=== PATIENT | female | born 1955 | race Caucasian/White ===

== ENCOUNTER → 2021-12-30 | Outpatient (CLI) | payer MEDICARE ==
--- NOTE | 2021-12-30 13:57 | XR ---
EXAMINATION TYPE: XR femur LT DATE OF EXAM: 12/30/2021 CLINICAL HISTORY: pain TECHNIQUE: Two views of the left femur are obtained. COMPARISON: None. FINDINGS: There is no acute fracture or dislocation seen of the femur. The hip and knee joints elba ear within normal limits. 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 The overlying soft tissue appears unremarkable. IMPRESSION: There is no acute fracture or dislocation seen of the femur. ICD 10 NO FRACTURE, INITIAL EVALUATION
== END | disposition home or self-care (01) ==
LOC: RADXRYALE 13:18
PROVIDERS: ATTEND Obstetrics & Gynecology
DX: M85.80 Other specified disorders of bone density and structure, unspecified site (principal)

== ENCOUNTER → 2022-05-05 | Outpatient (CLI) | payer MEDICARE ==
--- NOTE | 2022-05-05 16:31 | MR ---
EXAMINATION TYPE: MR knee LT wo con DATE OF EXAM: 05/05/2022 COMPARISON: Outside left knee x-ray March 31, 2022 HISTORY: Lt knee pain TECHNIQUE: Multiplanar, multisequence imaging of the left knee is performed without IV contrast. FINDINGS: MEDIAL MENISCUS: Slight medial extrusion medial meniscus with increased signal and fraying along the posterior horn extending to superior articular surface sagittal image 27. LATERAL MENISCUS: Anterior and posterior horns are intact without tear. CRUCIATE LIGAMENTS: The anterior and posterior cruciate ligaments are intact and unremarkable. COLLATERAL LIGAMENTS: The medial collateral ligament and lateral collateral ligament complex are inta ct. Fluid signal swells medial collateral ligament. EXTENSOR MECHANISM: Visualized quadriceps and patellar tendons are intact. EFFUSION: Small size suprapatellar joint effusion. POPLITEAL CYST: Small size popliteal/flores cyst sagittal image 23. TRICOMPARTMENT SPACES: Moderate to borderline severe narrowing inferior patellofemoral compartment. M oderate narrowing Medial and lateral tibiofemoral compartments. Mild tricompartment spurring. CARTILAGE: Chondromalacia patella with thinning of articular cartilage along the posterior patellar p ole, areas of full-thickness loss are seen. Cartilaginous loss medial tibiofemoral compartment with f ull-thickness defect sagittal image 23 centrally noted BONE MARROW SIGNAL: Mild increased T2 signal through the medial tibial plateau. OTHER: Cystic change posterior to the distal femur sagittal image 17 is noted. IMPRESSION: 1. Moderate to advanced tricompartment degenerative changes as detailed above. 2. Full-thickness tear posterior horn medial meniscus. 3. Mild MCL sprain injury. 4. Small suprapatellar joint effusion. 5. Small popliteal cyst.
== END | disposition home or self-care (01) ==
LOC: RADMRIMAIN 10:56
PROVIDERS: ATTEND Orthopaedic Surgery
DX: S83.242A Other tear of medial meniscus, current injury, left knee, initial encounter (principal); X58.XXXA Exposure to other specified factors, initial encounter

== ENCOUNTER → 2022-06-11 | Outpatient (CLI) | payer MEDICARE ==
[2022-06-11 18:35] LABS: Basophils # (A) 0.05 X 10*3/uL (0.00-0.10); Basophils % (A) 1.1 %; Eosinophils # (A) 0.09 X 10*3/uL (0.04-0.35); HCT 41.2 % (37.2-46.3); HGB 13.6 g/dL (12.0-15.0); Immature Grans, Automated 0.2 %; Lymphocytes # (A) 1.35 X 10*3/uL (0.90-5.00); Lymphocytes % (A) 30.6 %; MCH 30.4 pg (27.0-32.0); Monocytes # (A) 0.43 X 10*3/uL (0.20-1.00); Monocytes % (A) 9.8 %; NRBC Per 100 WBC 0 /100 WBCS (0.0-0.0); Neutrophils # (A) 2.48 X 10*3/uL (1.80-7.70); Neutrophils % (A) 56.3 %; Platelet Count 253 X 10*3/uL (140-440); RBC 4.48 X 10*6/uL (4.10-5.20); RDW 12.2 % (11.5-14.5); WBC 4.41 X 10*3/uL (4.50-10.00)
[2022-06-11 18:50] LABS: Carbon Dioxide 27.2 mmol/L (20.0-27.5); Potassium 4.2 mmol/L (3.5-5.5)
== END | disposition home or self-care (01) ==
LOC: LABPAT 12:12
PROVIDERS: ATTEND Orthopaedic Surgery
DX: Z01.812 Encounter for preprocedural laboratory examination (principal); M23.92 Unspecified internal derangement of left knee
CPT/HCPCS: 80051; 85025; 93005

== ENCOUNTER 2022-06-24 10:17 | Day surgery (SDC) | payer MEDICARE ==
--- NOTE | 2022-06-24 02:12 | HP ---
HISTORY AND PHYSICAL DATE OF SURGERY: 06/24/2022. HISTORY OF PRESENT ILLNESS: Adeline Cali is a 66-year-old patient seen with progressive left knee pain. Options were discussed. She elected to proceed with left knee arthroscopy. Consent was obtained. PAST MEDICAL HISTORY: Noncontributory. SURGICAL HISTORY: Laminectomy. DAILY MEDICATIONS: Vitamins. ALLERGIES: None. SOCIAL HISTORY: She denies tobacco use. PHYSICAL EVALUATION OF LEFT KNEE: Range of motion is -2/3 to 115. Mild effusion. Tenderness along the medial joint line. Positive medial Nely's. Ligaments stable. Hip rotation without pain. Distal neurovascular exam is intact. RADIOGRAPHS: Left knee radiographs reveal mild osteoarthritis, left knee. MRI revealed medial meniscal tear, osteoarthritis and effusion. IMPRESSION: Internal derangement of left knee with medial meniscal tear. PLAN: Left knee arthroscopy with partial medial meniscectomy and debridement. MMODL / IJN: [id number] /
[2022-06-24] MEDS ORDERED: ONDANSETRON 4 MG/2 ML VIAL ONE (10:54)
[2022-06-24] MEDS ORDERED: LACTATED RINGERS 1,000 ML IV ONE ×2 (10:58→13:16)
[2022-06-24] MEDS ORDERED: DEXAMETHASONE SOD PHOSPHATE 4 MG/ML 1 ML VIAL IVP ONE (10:59)
[2022-06-24] MEDS ORDERED: PROPOFOL 10 MG/ML 20 ML VIAL IV ONE (11:35)
[2022-06-24] MEDS ORDERED: MIDAZOLAM 2 MG/2 ML VIAL ONE (11:35)
[2022-06-24] MEDS ORDERED: LIDOCAINE 2% INJ 20 MG/ML (2 ML VIAL) ONE (11:35)
[2022-06-24] MEDS ORDERED: fentaNYL (PF) 50 MCG/ML 2 ML AMP ONE (11:35)
[2022-06-24] MEDS ORDERED: HYDROmorphone (PF) 1 MG/ML ONE (11:35)
[2022-06-24] MEDS ORDERED: BUPIVACAINE (PF) 0.25% 30 ML VIAL SQ ONE ×2 (11:49→12:08)
[2022-06-24 12:21] VITALS: TEMP 97.4
--- NOTE | 2022-06-24 12:27 | P.OP ---
Date of Procedure: 06/24/22 Preoperative Diagnosis: Internal derangement left knee Postoperative Diagnosis: 1. Tear medial and lateral meniscus left knee 2. Grade 3/4 chondromalacia medial femoral condyle left knee 3. Reactive synovitis medial, lateral and suprapatellar compartments left knee Procedure(s) Performed: 1. Arthroscopic partial medial and lateral meniscectomy left knee 2. Arthroscopic microfracture medial femoral condyle left knee 3. Arthroscopic partial synovectomy medial, lateral and suprapatellar compartments left knee Anesthesia: ARSENA, local Surgeon: Nain Del Valle Estimated Blood Loss (ml): 8 Pathology: none sent Condition: stable Disposition: PACU Indications for Procedure: 66-year-old patient seen with progressive left knee pain. After having treatment options discussed, she elected to proceed with arthroscopy. Operative Findings: See description of procedure Description of Procedure: Patient was taken to the operative suite. Patient underwent a general anesthetic by the department of anesthesia. Patient was given preoperative antibiotics. The left lower extremity was placed in a well-padded arthroscopic leg covarrubias. The left leg was prepped and draped in the normal sterile orthopedic fashion. A lateral parapatellar and suprapatellar incision was made. Trochars were inserted. Arthroscopy was initiated. Suprapatellar pouch revealed diffuse thick reactive synovitis. The patellofemoral joint appeared articulate congruently. There was grade 1 chondromalacia of the patella withosteochondral tears present. The scope was guided into the medial gutter. No loose bodies or plica were identified. The scope was then guided into the medial compartment. A medial parapatellar incision was made. Trocar inserted followed by probe. There was a complex tear involving the posterior horn and midbody medial meniscus. There was grade 3/4 chondromalacia medial femoral condyle with some osteochondral flap tears. There was thick reactive synovitis anteriorly. I performed a partial medial meniscectomy getting down to stable meniscal tissue. I performed a chondroplasty of the femoral condyle and partial synovectomy. There was good decompression of synovitis. The residual meniscus was stable. I noted area of grade 4 chondromalacia central area that medial femoral condyle measuring about 1 cm. I a microfracture awl and performed a microfracture to area penetrating the bone with resultant bleeding at the microfracture site. The residual osteochondral surface was probed and was found to be stable. Scope and probe were then guided into the intercondylar notch. Cruciates were identified, probed and found to be stable. The scope and probe were then guided into lateral compartment. There was a tear involving the posterior horn of the lateral meniscus. There were grade 1 chondromalacia of the lateral compartment. There was some reactive synovitis anteriorly. I performed a partial lateral meniscectomy. I performed a partial synovectomy. The residual meniscus was stable. There was good decompression of the synovitis. The scope was in guided back into the suprapatellar compartment. I introduced a motorized shaver into the suprapatellar compartment. I debrided some piecemeal fragments of meniscus that I encountered. I performed a partial synovectomy. Shaver was now removed. There was good decompression of the synovitis. I took one more look around the entire knee, no residual debris. Instruments were now removed from the joint. The joint was infiltrated with .25% Marcaine. Steri-Strips were applied to the portal sites. Sterile dressings were applied. The patient was placed into a AMANDA hose. No tourniquet was utilized. The patient was awakened, transferred to a bed and taken to recovery stable satisfactory condition.
[2022-06-24 14:08] VITALS: BP 116/72; PULSE 75; RESP 16
== END 2022-06-24 14:22 | disposition home or self-care (01) ==
LOC: OR 10:17
PROVIDERS: ATTEND Orthopaedic Surgery
DX: M23.322 Other meniscus derangements, posterior horn of medial meniscus, left knee (principal); S83.232A Complex tear of medial meniscus, current injury, left knee, initial encounter; M23.352 Other meniscus derangements, posterior horn of lateral meniscus, left knee; M17.12 Unilateral primary osteoarthritis, left knee; M65.862 Other synovitis and tenosynovitis, left lower leg; M94.262 Chondromalacia, left knee; Z79.1 Long term (current) use of non-steroidal anti-inflammatories (NSAID); Z98.890 Other specified postprocedural states
CPT/HCPCS: 29880; 29879; J2250; J1100; J0690; J2405; J3010; J1170; J2704; J2001

== ENCOUNTER → 2024-10-16 | Outpatient (CLI) | payer MEDICARE, OTHER ==
--- NOTE | 2024-10-16 14:56 | US ---
EXAMINATION TYPE: US kidneys/renal and bladder DATE OF EXAM: 10/16/2024 COMPARISON: US 2016 CLINICAL INDICATION: Female, 69 years old with history of N18.31 CHRONIC KIDNEY DISEASE, STAGE 3A; CK D TECHNIQUE: Grayscale imaging of the bilateral kidneys and urinary bladder: FINDINGS: EXAM MEASUREMENTS: Right Kidney: 10.6 x 5.5 x 5.0 cm Left Kidney: 10.3 x 5.7 x 4.7 cm Right Kidney: No hydronephrosis or masses seen Left Kidney: No hydronephrosis or masses seen. Probably dromedary hump visualized. Bladder: wnl Bilateral Jets seen: Yes There is no evidence for hydronephrosis at this point in time. No nephrolithiasis is seen. No marlys s are identified. The urinary bladder is anechoic. IMPRESSION: No hydronephrosis is seen bilaterally. [facility], , 10/16/2024 2:54 PM
== END | disposition home or self-care (01) ==
LOC: RADUSWWP 13:55
PROVIDERS: ATTEND Internal Medicine
DX: N18.31 Chronic kidney disease, stage 3a (principal)
CPT/HCPCS: 76770